=== PATIENT | female | born 1995 | race Caucasian/White ===

== ENCOUNTER 2017-04-23 23:46 | Emergency (ER) | payer OTHER ==
[~2017-04-23] VITALS: Ht 154.9 cm; Wt 74.8 kg
[~2017-04-23 23:46] MED LIST: ARIPIPRAZOLE5 MG PO; KEFLEX500 MG PO; VITAMIN D250000 UNIT PO
== END 2017-04-24 02:30 | disposition home or self-care (01) ==
LOC: ED 23:46
DX: R41.3 Other amnesia (principal); F17.200 Nicotine dependence, unspecified, uncomplicated; Z88.2 Allergy status to sulfonamides; Z91.013 Allergy to seafood
CPT/HCPCS: 36415; 80053; 80176; 81001; 84703; 85025; 99283; G0480

== ENCOUNTER 2018-01-23 20:54 | Emergency (ER) | payer OTHER ==
[~2018-01-23] VITALS: Ht 154.9 cm; Wt 82.5 kg
--- OUTSIDE RECORDS SUMMARY | ~2018-01-23 | XMS | Clinical Summary ---
Demographics + + + | Address | [address] | | | [place] [address] | + + + | Home Phone | | + + + | Preferred Language | Unknown | + + + | Marital Status | Unknown | + + + | Shinto Affiliation | Unknown | + + + | Race | Unknown | + + + | Ethnic Group | Unknown | + + + Author + + + | Author | [facility] | + + + | Organization | [facility] | + + + | Address | Unknown | + + + | Phone | Unavailable | + + + Support + + +---------+ + | Name | Relationship | Address | Phone | + + +---------+ + | Contact,No | ECON | Unknown | | + + +---------+ + Care Team Providers + +------+ + | Care Assistant Professor Of Music Name | Role | Phone | + +------+ + | Deric Begum | PP | | + +------+ + Allergies Not on File Current Medications Not on file Active Problems Not on file Encounters +--------+ + + + + | Date | Type | Specialty | Care Team | Description | +--------+ + + + + | 12/10/ | Documentati | | kT Swanson MD | | | 2018 | on Only | | | | +--------+ + + + + from Last 3 Months Social History + +-------+ +--------+------+ | Tobacco Use | Types | Packs/Day | Years | Date | | | | | Used | | + +-------+ +--------+------+ | Never Assessed | | | | | + +-------+ +--------+------+ + + + | Sex Assigned at | Date Recorded | | | | + + + | Not on file | | + + + Plan of Treatment + + + + + | Health Maintenance | Due Date | Last Done | Comments | + + + + + | Well Child Check | | | | | | 0 | | | + + + + + | Vaccine: HPV (1 of 3 | | | | | - Female 3-dose | 8 | | | | series) | | | | + + + + + | Vaccine: | | | | | Dtap/Tdap/Td (1 - | 6 | | | | Tdap) | | | | + + + + + | Cervical Cancer | | | | | Screening (Pap) | 8 | | | + + + + + | Vaccine: Influenza | | | | | (#1) | 8 | | | + + + + + Results Not on filefrom Last 3 Months Insurance + +--------+ +------+-------+ + | Payer | Benefi | Subscriber | Type | Phone | Address | | | t Plan | ID | | | | | | / | | | | | | | Group | | | | | + +--------+ +------+-------+ + | MEDICAID | [place] | [id number] | | | [address] | | | N | | | | [place] | | | [place] | | | | [phone] | | | BILL ADJUSTER | | | | | + +--------+ +------+-------+ + + +--------+ +--------+ + + | Guarantor Name | Accoun | Relation to | Date | Phone | Billing Address | | | t Type | Patient | of | | | | | | | | | | + +--------+ +--------+ + + | JOSEPH OLMSTEAD | Person | Self [birth year] Home: | [address] | | | al/Satish | | 1995 | [phone] | [place] | | | joe | | | [phone] | [phone] | + +--------+ +--------+ + +"
--- OUTSIDE RECORDS SUMMARY | ~2018-01-23 | XMS | Encounter Summary ---
Demographics + + + | Address | [address] | | | [place] [address] | + + + | Home Phone | | + + + | Preferred Language | Unknown | + + + | Marital Status | Unknown | + + + | Yazdanism Affiliation | Unknown | + + + | Race | Unknown | + + + | Ethnic Group | Unknown | + + + Author + + + | Author | [facility] | + + + | Organization | [facility] [employer] [facility] | + + + | Address | Unknown | + + + | Phone | Unavailable | + + + Support + + +---------+ + | Name | Relationship | Address | Phone | + + +---------+ + | Contact,No | ECON | Unknown | | + + +---------+ + Care Team Providers + +------+ + | Care Environmental Web Crawler Name | Role | Phone | + +------+ + | Deric Begum | PCP | | + +------+ + Encounter Details +--------+ + + + + | Date | Type | Department | Care Team | Description | +--------+ + + + + | 12/10/ | Documentati | [facility] | Tk Swanson MD [address] | | | 2018 | on Only | [facility] | [address] | | | | | [address] | [place] [address] | | | | | [place] | [phone] | | | | | [address] | | | | | | [phone] | | | +--------+ + + + + Social History + +-------+ +--------+------+ | Tobacco [...] on file | | + + + as of this encounter Plan of Treatment Not on fileas of this encounter Visit Diagnoses Not on filein this encounter"
--- OUTSIDE RECORDS SUMMARY | ~2018-01-23 | XMS | Clinical Summary ---
Demographics + + + | Address | [address] | | | [place] [address] | + + + | Home Phone | | + + + | Preferred Language | Unknown | + + + | Marital Status | Unknown | + + + | Yazidi Affiliation | Unknown | + + + | Race | Unknown | + + + | Ethnic Group | Unknown | + + + Author + + + | Author | [facility] | + + + | Organization | [facility] | + + + | Address | Unknown | + + + | Phone | Unavailable | + + + Support + + +---------+ + | Name | Relationship | Address | Phone | + + +---------+ + | Contact,No | ECON | Unknown | | + + +---------+ + Care Team Providers + +------+ + | Care Brick Loader Name | Role | Phone | + [...] +------+-------+ + | MEDICAID | [place] | [id number] | | | [address] | | | N | | | | [place] | | | [place] | | | | [phone] | | | [employer] ETL DEVELOPER | | | | | + +--------+ [...] | joe | | | [phone] | [phone] | + +--------+ +--------+ + +"
--- OUTSIDE RECORDS SUMMARY | ~2018-01-23 | XMS | Encounter Summary ---
Demographics + + + | Address | [address] | | | [place] [address] | + + + | Home Phone | | + + + | Preferred Language | Unknown | + + + | Marital Status | Unknown | + + + | Jehovah'S Witness Affiliation | Unknown | + + + | Race | Unknown | + + + | Ethnic Group | Unknown | + + + Author + + + | Author | [facility] | + + + | Organization | [facility] | + + + | Address | Unknown | + + + | Phone | Unavailable | + + + Support + + +---------+ + | Name | Relationship | Address | Phone | + + +---------+ + | Contact,No | ECON | Unknown | | + + +---------+ + Care Team Providers + +------+ + | Care Human Relations Professor Name | Role | Phone | + [...] | | | [address] | [place] [address] | | | | | [place] | [phone] | | | | | [address] | | | | | | [phone] | | | +--------+ + + + [...]
[2018-01-23] MEDS ORDERED: LAMOTRIGINE25 MG PO (21:17)
[2018-01-23] MEDS ORDERED: ACETAMINOPHEN-1 EAC1 PO (22:21)
[2018-01-23] MEDS ORDERED: DOXYCYCLINE HY100 MG PO (22:21)
== END 2018-01-23 22:32 | disposition home or self-care (01) ==
LOC: ED 20:54
DX: L05.91 Pilonidal cyst without abscess (principal); F41.9 Anxiety disorder, unspecified; F32.9 Major depressive disorder, single episode, unspecified; Z88.2 Allergy status to sulfonamides; Z91.013 Allergy to seafood; Z79.899 Other long term (current) drug therapy
CPT/HCPCS: 99282

== ENCOUNTER 2018-01-27 13:29 | Emergency (ER) | payer OTHER ==
[~2018-01-27] VITALS: Ht 154.9 cm; Wt 82.5 kg
--- OUTSIDE RECORDS SUMMARY | ~2018-01-27 | XMS | Clinical Summary ---
Demographics + + + | Address | [address] | | | [place] [address] | + + + | Home Phone | | + + + | Preferred Language | Unknown | + + + | Marital Status | Unknown | + + + | Cheondoism Affiliation | Unknown | + + + | Race | Unknown | + + + | Ethnic Group | Unknown | + + + Author + + + | Author | [facility] | + + + | Organization | [facility] | + + + | Address | Unknown | + + + | Phone | Unavailable | + + + Support + + +---------+ + | Name | Relationship | Address | Phone | + + +---------+ + | Contact,No | ECON | Unknown | | + + +---------+ + Care Team Providers + +------+ + | Care Theatre Director Name | Role | Phone | + +------+ + | Deric Begum | PP | | + +------+ + Allergies Not on File Current Medications Not on file Active Problems Not on file Encounters +--------+ + + + + | Date | Type | Specialty | Care Team | Description | +--------+ + + + + | 12/10/ | Documentati | | Tk Swanson MD | | | 2018 | [...] +------+-------+ + | MEDICAID | [place] | [id number] | | | [address] | | | N | | | | [place] | | | [place] | | | | [phone] | | | LINE ERECTOR | | | | | + +--------+ [...] | joe | | | [phone] | [phone] | + +--------+ +--------+ + +"
--- OUTSIDE RECORDS SUMMARY | ~2018-01-27 | XMS | Encounter Summary ---
Demographics + + + | Address | [address] | | | [place] [address] | + + + | Home Phone | | + + + | Preferred Language | Unknown | + + + | Marital Status | Unknown | + + + | Confucianist Affiliation | Unknown | + + + | Race | Unknown | + + + | Ethnic Group | Unknown | + + + Author + + + | Author | [facility] | + + + | Organization | [facility] [facility] | + + + | Address | Unknown | + + + | Phone | Unavailable | + + + Support + + +---------+ + | Name | Relationship | Address | Phone | + + +---------+ + | Contact,No | ECON | Unknown | | + + +---------+ + Care Team Providers + +------+ + | Care Cardiology Specialist Name | Role | Phone | + [...] | | | [address] | [place] [address] | | | | | [place] | [phone] | | | | | [address] | | | | | | [phone] | | | +--------+ + + + [...]
--- OUTSIDE RECORDS SUMMARY | ~2018-01-27 | XMS | Encounter Summary ---
Demographics + + + | Address | [address] | | | [place] [address] | + + + | Home Phone | | + + + | Preferred Language | Unknown | + + + | Marital Status | Unknown | + + + | Mandaen Affiliation | Unknown | + + + | Race | Unknown | + + + | Ethnic Group | Unknown | + + + Author + + + | Author | [facility] | + + + | Organization | [facility] | + + + | Address | Unknown | + + + | Phone | Unavailable | + + + Support + + +---------+ + | Name | Relationship | Address | Phone | + + +---------+ + | Contact,No | ECON | Unknown | | + + +---------+ + Care Team Providers + +------+ + | Care Ear Nose Throat Physician Name | Role | Phone | + [...] | | [address] | [place] [address] | | | | | [place] | [phone] | | | | | [address] | | | | | | [phone] | | | +--------+ + + + [...]
--- OUTSIDE RECORDS SUMMARY | ~2018-01-27 | XMS | Clinical Summary ---
Demographics + + + | Address | [address] | | | [place] [address] | + + + | Home Phone | | + + + | Preferred Language | Unknown | + + + | Marital Status | Unknown | + + + | Adventism Affiliation | Unknown | + + + | Race | Unknown | + + + | Ethnic Group | Unknown | + + + Author + + + | Author | [facility] | + + + | Organization | [facility] | + + + | Address | Unknown | + + + | Phone | Unavailable | + + + Support + + +---------+ + | Name | Relationship | Address | Phone | + + +---------+ + | Contact,No | ECON | Unknown | | + + +---------+ + Care Team Providers + +------+ + | Care Lunchroom Food Service Supervisor Name | Role | Phone | + [...] +------+-------+ + | MEDICAID | [place] | [id number] | | | [address] | | | N | | | | [place] | | | [place] | | | | [address] | | | HOUSE NURSE | | | | | + +--------+ [...] | jo[place] | | | [phone] | [phone] | + +--------+ +--------+ + +"
[~2018-01-27 13:29] MED LIST changes: +ACETAMINOPHEN-1 EAC1 PO; +DOXYCYCLINE HY100 MG PO; +LAMOTRIGINE25 MG PO
[2018-01-27] MEDS ORDERED: CLEOCIN HCL300 MG PO (14:24)
[2018-01-27] MEDS ORDERED: IBUPROFEN600 MG PO (14:24)
[2018-01-27] MEDS ORDERED: NORCO 10-325 T1 EACH PO (14:24)
== END 2018-01-27 14:49 | disposition home or self-care (01) ==
LOC: ED 13:29
PROC: 0H98XZZ Drainage of Buttock Skin, External Approach (ICD-10-PCS; principal; 2018-01-27)
DX: L05.01 Pilonidal cyst with abscess (principal); F32.9 Major depressive disorder, single episode, unspecified; F41.9 Anxiety disorder, unspecified; F60.3 Borderline personality disorder; Z88.2 Allergy status to sulfonamides; Z91.013 Allergy to seafood; Z79.899 Other long term (current) drug therapy
CPT/HCPCS: 10080; 99282

== ENCOUNTER 2019-07-01 17:51 | Emergency (ER) | payer OTHER ==
[~2019-07-01] VITALS: Ht 154.9 cm; Wt 67.6 kg
[~2019-07-01 17:51] MED LIST changes: +CLEOCIN HCL300 MG PO; +IBUPROFEN600 MG PO; +NORCO 10-325 T1 EACH PO
--- OUTSIDE RECORDS SUMMARY | 2019-07-01 17:54 | XMS ---
PreManage Notification: JOSEPH OLMSTEAD Security Marine Extension Agent Events No recent Security Events currently on file CRITERIA MET - PDMP CARE PROVIDERS PURNIMA SHEEHAN Physician Beef Cattle Specialist 01/28/2018-Current PHONE: [phone] Abbi has no Care Guidelines for this patient. EJez VISIT COUNT (12 MO.) 1 MORA Cosme TOTAL 1 NOTE: Visits indicate total known visits. ED/UCC VISIT TRACKING (12 MO.) 07/01/2019 17:51 MORA Tariq [place] TYPE: Emergency COMPLAINT: - FINGER LAC INPATIENT VISIT TRACKING (12 MO.) No inpatient visits to display in this time frame [email or web address]
[2019-07-01] MEDS ORDERED: PROZAC10 MG PO (18:06)
== END 2019-07-01 18:45 | disposition home or self-care (01) ==
LOC: ED 17:51
DX: S61.211A Laceration without foreign body of left index finger without damage to nail, initial encounter (principal); W26.8XXA Contact with other sharp object(s), not elsewhere classified, initial encounter; F31.9 Bipolar disorder, unspecified; F43.10 Post-traumatic stress disorder, unspecified; Z88.2 Allergy status to sulfonamides; Z91.013 Allergy to seafood; Z79.899 Other long term (current) drug therapy
CPT/HCPCS: 12001; 90471; 90715; 99282-25

== ENCOUNTER 2019-12-16 14:58 | Emergency (ER) | payer OTHER ==
[~2019-12-16] VITALS: Ht 154.9 cm; Wt 67.1 kg
[~2019-12-16 14:58] MED LIST changes: +PROZAC10 MG PO
--- OUTSIDE RECORDS SUMMARY | 2019-12-16 15:02 | XMS ---
PreManage Notification: JOSEPH OLMSTEAD Security Pump Mechanic Events No recent Security Events currently on file CRITERIA MET - PDMP CARE PROVIDERS PURNIMA SHEEHAN Physician Enterprise Systems Manager 01/28/2018-Current PHONE: [phone] WINIFRED DIOR Nurse Practitioner: Women's Health 07/03/2019-Current PHONE: [phone] Abbi has no Care Guidelines for this patient. Care History Medical/Surgical 07/03/2019 [facility] - Patient is currently established with [facility]. If patient is seen in the ED during business hours. Please contact CHWs at [facility]. Care Recommendation: If this patient has had 5 or more Emergency Department visits in the last 12 months.\T\nbsp; Patient will require education on the scope and purpose of the ED as an acute care provider not a Primary Care Provider and should not be utilized for chronic conditions.\T\nbsp; These are guidelines and the provider should exercise clinical judgment when providing care. E.D. VISIT COUNT (12 MO.) 2 MORA Cosme TOTAL 2 NOTE: Visits indicate total known visits. ED/UCC VISIT TRACKING (12 MO.) 12/16/2019 14:59 MORA Tariq [place] TYPE: Emergency COMPLAINT: - LT WRIST INJURY 07/01/2019 17:51 MORA Tariq [place] TYPE: Emergency COMPLAINT: - FINGER LAC DIAGNOSES: - Allergy to seafood - Laceration without foreign body of left index finger without - Allergy status to sulfonamides status - Contact with other sharp object(s), not elsewhere classified, - Bipolar disorder, unspecified - Post-traumatic stress disorder, unspecified - Laceration without foreign body of left index finger without - Other custodial (current) drug therapy INPATIENT VISIT TRACKING (12 MO.) No inpatient visits to display in this time frame [email or web address]
[2019-12-16] MEDS ORDERED: DEXTROAMP-AMPHE25 MG PO (15:07)
[2019-12-16] MEDS ORDERED: LITHIUM CARBON300 MG PO (15:08)
== END 2019-12-16 15:42 | disposition home or self-care (01) ==
LOC: ED 14:58
DX: S60.212A Contusion of left wrist, initial encounter (principal); F31.9 Bipolar disorder, unspecified; F43.10 Post-traumatic stress disorder, unspecified; F41.9 Anxiety disorder, unspecified; Z88.5 Allergy status to narcotic agent; Z88.2 Allergy status to sulfonamides; Z79.899 Other long term (current) drug therapy; W22.8XXA Striking against or struck by other objects, initial encounter
CPT/HCPCS: 73110; 99283-25

== ENCOUNTER 2020-12-16 18:25 | Emergency (ER) | payer OTHER ==
[~2020-12-16] VITALS: Ht 154.9 cm; Wt 65.9 kg
[~2020-12-16 18:25] MED LIST changes: +DEXTROAMP-AMPHE25 MG PO; +LITHIUM CARBON300 MG PO
--- OUTSIDE RECORDS SUMMARY | 2020-12-16 18:28 | XMS ---
PreManage Notification: JOSEPH OLMSTEAD Security Straightener Gun Parts Events No recent Security Events currently on file CRITERIA MET - PDMP CARE PROVIDERS PURNIMA SHEEHAN Physician Irradiated Fuel Handler 01/28/2018-Current PHONE: [phone] WINIFRED DIOR Nurse Practitioner: Women's Health 07/03/2019-Current PHONE: [phone] Abbi has no Care Guidelines for this patient. Care History Medical/Surgical 07/03/2019 [facility] - Patient is currently established with [facility]. If patient is seen in the ED during business hours. Please contact CHWs at [facility]. Care Recommendation: If this patient has had [...] providing care. E.D. VISIT COUNT (12 MO.) 1 MORA Cosme TOTAL 1 NOTE: Visits indicate total known visits. ED/UCC VISIT TRACKING (12 MO.) 12/16/2020 18:25 MORA Tariq [place] TYPE: Emergency COMPLAINT: - RT HAND INJURY INPATIENT VISIT TRACKING (12 MO.) No inpatient visits to display in this time frame [email or web address]
[2020-12-16] MEDS ORDERED: SIMPESSE 0.15-1 EACH PO (21:10)
[2020-12-16] MEDS ORDERED: BUSPIRONE HCL5 MG PO (21:10)
[2020-12-16] MEDS ORDERED: LEVOTHYROXINE50 MCG PO (21:10)
== END 2020-12-16 22:15 | disposition home or self-care (01) ==
LOC: ED 18:25
DX: S60.221A Contusion of right hand, initial encounter (principal); W23.1XXA Caught, crushed, jammed, or pinched between stationary objects, initial encounter; F43.10 Post-traumatic stress disorder, unspecified; Z88.5 Allergy status to narcotic agent; Z88.2 Allergy status to sulfonamides; Z79.899 Other long term (current) drug therapy
CPT/HCPCS: 73130; 99283-25; A9270

== ENCOUNTER 2022-02-05 19:47 | Emergency (ER) | payer OTHER ==
[~2022-02-05] VITALS: Ht 154.9 cm; Wt 76.0 kg
[~2022-02-05 19:47] MED LIST changes: +BUSPIRONE HCL5 MG PO; +LEVOTHYROXINE50 MCG PO; +SIMPESSE 0.15-1 EACH PO
--- OUTSIDE RECORDS SUMMARY | 2022-02-05 19:50 | XMS ---
PreManage Notification: JOSEPH OLMSTEAD Security Training Generalist Events No recent Security Events currently on file CRITERIA MET - CATHYP CARE PROVIDERS HARRIETT BARNES Physician Plastering Supervisor 12/17/2020-Current PHONE: Unknown PURNIMA SHEEHAN Physician Plastering Supervisor 01/28/2018-Current PHONE: [phone] Abbi has no Care Guidelines for this patient. Maite VISIT COUNT (12 MO.) 2 MORA Cosme TOTAL 2 NOTE: Visits indicate total known visits. ED/UCC VISIT TRACKING (12 MO.) 02/05/2022 19:47 MORA Tariq OR TYPE: Emergency COMPLAINT: - ARM LACERATION 10/27/2021 15:57 MORA Tariq [place] TYPE: Emergency COMPLAINT: - VAGINAL BLEEDING/ 7 WEEKS PREG DIAGNOSES: - Other nursing home (current) drug therapy - Allergy status to narcotic agent - Threatened - Less than 8 weeks gestation of - Allergy status to sulfonamides - Hemorrhage in early , unspecified INPATIENT VISIT TRACKING (12 MO.) No inpatient visits to display in this time frame [email or web address]
== END 2022-02-05 23:42 | disposition home or self-care (01) ==
LOC: ED 19:47
DX: S51.811A Laceration without foreign body of right forearm, initial encounter (principal); Z23 Encounter for immunization; Z88.6 Allergy status to analgesic agent; Z88.2 Allergy status to sulfonamides; W26.9XXA Contact with unspecified sharp object(s), initial encounter
CPT/HCPCS: 90471; 90715; 99282-25

== ENCOUNTER 2022-06-05 07:58 | Inpatient (IN) | payer OTHER ==
[~2022-06-05] VITALS: Ht 154.9 cm; Wt 82.6 kg
--- NOTE | 2022-06-05 12:45 | PR ---
[facility] [address] [place], [place] [address] Signed Progress Notes IP Datetime Report Generated by CPN: 06/05/2022 12:45 PROGRESS NOTES: [id number] Impression: Reassuring Heart Rate Procedures: Artificial ROM VITAL SIGNS: [id number] Vital Signs: Reviewed VS Notable Details: persistently elevated, non-severe EXAM: [id number] Dilatation: 4.0 Effacement: 80 Station: -3 Contractions: acontractile MEMBRANES: [id number] Membranes Status: Ruptured Comments: AROM performed yielding moderate amount of bloody fluid. Pt reports history significant for "bleeding a lot for anything" including requiring suture closure of skin after Nexplanon removal. Plan: low-dose pitocin in 1-2h if no contractions. Epidural ok upon pt request. Anticipate TXA at time of delivery. FETUS A: [id number] FHR Baseline: 135 Variability: Moderate 6-25bpm Accelerations: 15X15 Decelerations: None FHR Category: Category I Presentation: Vertex Comments on Fetus A: no evidence of acidemia FETUS B: [id number] Signing Physician: Kervin Zheng DO Copies: ~ *Electronically Signed* 06/05/22 1245 KERVIN ZHENG DO PATIENT NAME: JOSEPH OLMSTEAD PROGRESS NOTE DATE OF : [birth year] PHYSICIAN: KERVIN ZHENG #: [id number] REPORT IS CONFIDENTIAL AND NOT TO BE RELEASED WITHOUT AUTHORIZATION
--- NOTE | 2022-06-05 18:22 | PR ---
[facility] [address] [facility] [place], [place] [address] Signed Progress Notes IP Datetime Report Generated by N: 06/05/2022 18:21 PROGRESS NOTES: [id number] Impression: Normal Progression of Labor; Reassuring Heart Rate Procedures: Sterile Vag Exam Plan: Continue Present Management (Annotations: Data stored by [facility] on behalf of user) VITAL SIGNS: [id number] Vital Signs: Reviewed VS Notable Details: persistently elevated, non-severe EXAM: [id number] Dilatation: 7.0 Effacement: 95 Station: -2 Contractions: acontractile MEMBRANES: [id number] Membranes Status: Ruptured Comments: Progressing well, category 1 tracing. Continue repositioning with peanut ball. FETUS A: [id number] FHR Baseline: 135 Variability: Moderate 6-25bpm Accelerations: 15X15 Decelerations: None FHR Category: Category I Presentation: Vertex Comments on Fetus A: no evidence of acidemia FETUS B: [id number] Signing Physician: Kervin Zheng DO Copies: ~ *Electronically Signed* 06/05/22 182 KERVIN ZHENG DO PATIENT NAME: JOSEPH OLMSTEAD PROGRESS NOTE DATE OF : [birth year] PHYSICIAN: KERVIN ZHENG DO RPT #: [id number] REPORT IS CONFIDENTIAL AND NOT TO BE RELEASED WITHOUT AUTHORIZATION
--- NOTE | 2022-06-07 12:46 | PR ---
[facility] [address] [place], [place] [address] Signed PP Progress Notes Datetime Report Generated by FAISAL: 06/07/2022 12:46 SUBJECTIVE: [id number] Nausea/Vomiting: Denies Flatus: Yes Vital Signs: [id number] Vital Signs: Reviewed Notable Details: BPs 130s-140s/70s-90s EXAM: Ongoing Cardiovascular: Normal Respiratory: Normal Abdomen/Uterus: Normal Lochia: Normal Extremities: Normal Incision: Normal Progress: Normal Exam Comments: NAD RRR, no pallor No dyspnea/ retractions Abd SNTND, FFBU Ext: trace edema BLLE, neg Tom's BL IMPRESSION/PLAN/PROCEDURES: [id number] Impression: Normal Progression; Induced Hypertension Plan: Discharge Progress Notes: Pt is a 26 yo [id number] s/p -MIOL for gHTN, BP stable, non-severe: follow-up as outpatient 06/10 for BP check. PreE precautions reviewed -hgb 8.1 from 10.1, asymptomatic: start oral iron BID Undecided re: contraception well since last night when baby began to latch well Anticipate DC to home today Signing Physician: Kervin Zheng DO *Electronically Signed* 06/07/22 1246 KERVIN ZHENG DO PATIENT NAME: JOSEPH OLMSTEAD PROGRESS NOTE DATE OF : [birth year] PHYSICIAN: KERVIN ZHENG DO RPT #: [id number] REPORT IS CONFIDENTIAL AND NOT TO BE RELEASED WITHOUT AUTHORIZATION
== END 2022-06-07 14:47 | disposition home or self-care (01) | DRG 806 ==
LOC: FBCO 07:58 → FBC 10:00
PROVIDERS: ADMIT Obstetrics & Gynecology; ATTEND Obstetrics & Gynecology
PROC: 10E0XZZ Delivery of Products of Conception, External Approach (ICD-10-PCS; principal; 2022-06-05)
PROC: 0KQM0ZZ Repair Perineum Muscle, Open Approach (ICD-10-PCS; 2022-06-05)
PROC: 10907ZC Drainage of Amniotic Fluid, Therapeutic from Products of Conception, Via Natural or Artificial Opening (ICD-10-PCS; 2022-06-05)
PROC: 00HU33Z Insertion of Infusion Device into Spinal Canal, Percutaneous Approach (ICD-10-PCS; 2022-06-05)
PROC: 3E0R3BZ Introduction of Anesthetic Agent into Spinal Canal, Percutaneous Approach (ICD-10-PCS; 2022-06-05)
DX: O13.4 Gestational [pregnancy-induced] hypertension without significant proteinuria, complicating childbirth (principal); D62 Acute posthemorrhagic anemia; Z37.0 Single live birth; O99.02 Anemia complicating childbirth; O99.324 Drug use complicating childbirth; F12.90 Cannabis use, unspecified, uncomplicated; Z20.822 Contact with and (suspected) exposure to COVID-19; Z67.10 Type A blood, Rh positive; O70.1 Second degree perineal laceration during delivery; Z3A.38 38 weeks gestation of pregnancy; Z87.891 Personal history of nicotine dependence
CPT/HCPCS: 36415; 59025; 80053; 82565; 82570; 83615; 84156; 84550; 85027; 86850; 86900; 86901; 87502; A9270; C9803; J2590; J7121; U0003

== ENCOUNTER 2024-02-22 05:44 | Day surgery (SDC) | payer OTHER ==
[2024-02-14 11:20] VITALS: BP 124/80
[~2024-02-22] VITALS: Ht 152.4 cm; Wt 64.1 kg
[~2024-02-22 05:44] MED LIST changes: +LACTATED RINGER'S 1,000 ML IV SCH
[2024-02-22 05:58] VITALS: BP 128/83
[2024-02-22] MEDS ORDERED: SUCCINYLCHOLINE IN 0.9% NACL 200 MG/10 ML SYRINGE ONE (06:28)
[2024-02-22] MEDS ORDERED: ondansetron HCL 4 MG/2 ML VIAL ONE (06:28)
[2024-02-22] MEDS ORDERED: SUGAMMADEX SODIUM 200 MG/2 ML ML ONE (06:28)
[2024-02-22] MEDS ORDERED: DEXAMETHASONE SOD PHOS 4 MG/ML VIAL ONE (06:28)
[2024-02-22] MEDS ORDERED: fentaNYL citrate 100 MCG/2 ML VIAL ONE (06:28)
[2024-02-22] MEDS ORDERED: KETOROLAC TROMETHAMINE 30 MG/ML VIAL ONE (06:28)
[2024-02-22] MEDS ORDERED: propofoL 200 MG/20 ML VIAL ONE (06:28)
[2024-02-22] MEDS ORDERED: METOCLOPRAMIDE HCL 10 MG/2 ML SDV ONE (06:28)
[2024-02-22] MEDS ORDERED: LACTATED RINGER'S 1,000 ML IV ONE ×2 (06:28→08:33)
[2024-02-22] MEDS ORDERED: FAMOTIDINE 20 MG/ 2 ML VIAL ONE (06:28)
[2024-02-22] MEDS ORDERED: ROCURONIUM BROMIDE 50 MG/5 ML SYR ONE (06:28)
[2024-02-22] MEDS ORDERED: LIDOCAINE HCL 4% 5 ML AMP ONE (06:29)
[2024-02-22] MEDS ORDERED: MIDAZOLAM HCL 2 MG/2 ML VIAL ONE (06:29)
[2024-02-22] MEDS ORDERED: dexmedeTOMIDine HCl 200 MCG/2 ML VIAL ONE (06:38)
[2024-02-22] MEDS ORDERED: IBLOOD GLUCOSE TEST STRIP 1 EA TEST VI PRN ×2 (07:00→08:00)
[2024-02-22] MEDS ORDERED: LIDOCAINE HCL 1% 5 ML SDV INJ ONE (07:00)
[2024-02-22] MEDS ORDERED: CEFAZOLIN SODIUM 2 GM/20 ML SYR IV SCH (07:00)
[2024-02-22] MEDS ORDERED: KETAMINE in NS 50 MG/5 ML SYR ONE (07:35)
--- NOTE | 2024-02-22 07:50 | NUR ---
PT GONE FOR PROCEDURE. PROVIDED PRAYER.
[2024-02-22] MEDS ORDERED: SEVOFLURANE 250 ML BTL ONE (07:52)
[2024-02-22] MEDS ORDERED: PROCHLORPERAZINE EDISYLATE 10 MG/2 ML VIAL IV PRN ×2 (08:00→09:00)
[2024-02-22] MEDS ORDERED: droPERidol 5 MG/2 ML VIAL IV PRN (08:00)
[2024-02-22] MEDS ORDERED: ondansetron HCL 4 MG/2 ML VIAL IV PRN ×2 (08:00→09:00)
[2024-02-22] MEDS ORDERED: NALOXONE HCL 0.4 MG SYR IV PRN ×2 (08:00→09:00)
[2024-02-22] MEDS ORDERED: fentaNYL citrate 50 MCG/ML SDV IV PRN (08:00)
[2024-02-22] MEDS ORDERED: MEPERIDINE HCL 25 MG/1 ML VIAL IV PRN (08:00)
[2024-02-22] MEDS ORDERED: METOCLOPRAMIDE HCL 10 MG/2 ML SDV IV PRN (08:00)
[2024-02-22] MEDS ORDERED: FLUORESCEIN SODIUM 500 MG/5 ML ML ONE (08:03)
[2024-02-22] MEDS ORDERED: SIMETHICONE 125 MG TABLET CHEWABLE PO PRN (09:00)
[2024-02-22] MEDS ORDERED: OXYCODONE/APAP 5/325 TAB PO PRN (09:00)
[2024-02-22] MEDS ORDERED: SIMETHICONE 125 MG TABLET CHEWABLE PO SCH (09:00)
[2024-02-22] MEDS ORDERED: FAMOTIDINE 20 MG/ 2 ML VIAL IV PRN (09:00)
[2024-02-22] MEDS ORDERED: MORPHINE SULFATE 10 MG/ML VIAL IV PRN (09:00)
[2024-02-22] MEDS ORDERED: MAGNESIUM HYDROXIDE/AL HYDROX 30 ML CUP PO PRN (09:00)
--- NOTE | 2024-02-22 09:34 | NUR ---
[facility]IV[facility] NON RESPONSIVE TO NOXIOUS STIMULI WITH OPA IN PLACE. CHIN LIFT HELD BY RN. 0905 REPOSITIONED HEAD TO L SIDE TO KEEP AIRWAY OPEN WITH OPA IN PLACE. 0910 DR AT BEDSIDE PREPPING L UPPER ARM WITH STERILE TECHNIQUE. NEXPLANON REMOVED BY DR. JEREZ STRIPS X 2 AND COBAN OVERSITE. PT CONTINUES TO BE NON RESPONSIVE TO NOXIOUS STIMULI. 09 NO CHANGE IN PT STATUS.
[2024-02-22 10:08] VITALS: BP 114/69
--- NOTE | 2024-02-22 10:16 | NUR ---
1006-PT BACK TO ROOM FROM PACU ON RA. RECEIVED REPORT FROM SHENA FLANNERY. PT IS AWAKE. RATES PAIN 3/10, DENIES NAUSEA. PROVIDED PT WITH WATER AND JELLO. NO OTHER NEEDS AT THIS TIME. CALL LIGHT WITHIN REACH.
[2024-02-22 11:14] VITALS: BP 123/75
[2024-02-22] MEDS ORDERED: KETOROLAC TROMETHAMINE 15 MG/ML VIAL IV ONE (11:30)
[2024-02-22] MEDS ORDERED: ACETAMINOPHEN 1,000 MG/100 ML VIAL IV ONE (11:30)
[2024-02-22] MEDS ORDERED: KETOROLAC TROMETHAMINE 15 MG/ML VIAL ONE (11:38)
[2024-02-22] MEDS ORDERED: ACETAMINOPHEN 1,000 MG/100 ML VIAL ONE (11:38)
[2024-02-22 12:05] VITALS: BP 117/73
--- NOTE | 2024-02-22 12:14 | NUR ---
LE 1102-PT IN RESTROOM. VOIDS 20ML OF YELLOW URINE. LE 1105-PT AMBULATES BACK TO ROOM AND LAYING IN BED. WARM BLANKET PROVIDED. LE 1116-PT RATES PAIN 5/10, DENIES NAUSEA. RESP EVEN AND UNLABORED. PT REQUESTS SOMETHING OTHER THAN NARCTICS FOR PAIN CONTROL IF POSSIBLE. CALL LIGHT WITHIN REACH LE 1118-VO FOR IV TYLENOL AND 15MG OF TORADOL PER SAMARA WHEELER. ORDERS SENT TO PHARM. LE 1120-CALLED PHARMACY TO VERIFY ORDERS. LE 1138-PAIN MEDS GIVEN PER EMAR. REFILLED PT'S WATER. NO OTHER NEEDS AT THIS TIME. CALL LIGHT WITHIN REACH
--- NOTE | 2024-02-22 12:18 | NUR ---
1210-PT LAYING IN BED. RESP EVEN AND UNLABORED. RATES PAIN 5/10. DENIES NAUSEA. NO OTHER NEEDS AT THIS TIME. CALL LIGHT WITHIN REACH.
--- NOTE | 2024-02-22 12:38 | NUR ---
PT RATES PAIN 3-4/10 AND THIS IS TOLERABLE FOR HER. NO OTHER NEEDS AT THIS TIME. CALL LIGHT WITHIN REACH.
--- NOTE | 2024-02-22 12:45 | NUR ---
1245-PT AMBULATES TO RESTROOM. GAIT STEADY AND TOLERATED WELL.
--- NOTE | 2024-02-22 12:49 | NUR ---
1248-PT VOIDS 400ML OF YELLOW URINE. PT IS READY TO GO HOME. PT WILL GET DRESSED.
--- NOTE | 2024-02-22 13:20 | NUR ---
CAROL 1258-WENT OVER DISCHARGE INSTRUCTIONS WITH PT. ALL QUESTIONS ANSWERED. PT AMBULATES TO WHEELCHAIR AND RIDE PROVIDED TO FRONT OF HOSPITAL WHERE BROTHER WAS WAITING WITH THE CAR.
--- NOTE | 2024-02-28 17:18 | PATH ---
[facility] [address] [place], [place] [address] Signed SPECIMEN(S): A UTERUS, CERVIX, BILATERAL TUBES SPECIMEN SOURCE: A. UTERUS, CERVIX, BILATERAL TUBES CLINICAL HISTORY: AUB, dysmenorrhea, PCOS FINAL PATHOLOGIC DIAGNOSIS: Uterus, cervix and bilateral tubes: - Proliferative endometrium, negative for hyperplasia or atypia. - Benign endo and ectocervix. - Benign bilateral fimbriated oviducts. JVR:ifrah MICROSCOPIC EXAMINATION: Histologic sections of all submitted blocks are examined by light microscopy. These findings, together with the gross examination, support the pathologic diagnosis. GROSS DESCRIPTION: The specimen, labeled and designated "Shanon Rao, uterus, cervix, bilateral fallopian tubes," is received in formalin and consists of uterus with attached cervix detached bilateral fallopian tubes. The uterus and cervix weighs 86 g measuring 8.4 x 5.5 x 4.0 cm. The uterine serosa is pink-neville smooth. The cervix measures 3.3 x 3.0 cm, the ectocervix pink-neville smooth with an area of erosion near the external os measuring 1.4 x 1.0 cm, and the external os is slit like and patent measuring 1.2 cm in greatest dimension. The specimen is opened to reveal triangular-shaped endometrium measuring 3.5 x 2.5 cm in pink-neville smooth ranging in thickness from 0.1 to 0.2 cm. The myometrial thickness is 1.8 cm and is sectioned to reveal white trabeculated cut surfaces. The first detached fallopian tube measures 5.9 cm in length by 0.4 cm in greatest diameter with attached fimbriated end and a single peritubular cyst measuring 0.2 cm in greatest dimension. The second detached fallopian tube measures 4.7 cm in length by 0.6 cm in greatest diameter with attached fimbriated end. Hoop Riveting Machine Operator Helper sections are submitted. Cassette Summary: (A1) sales representative malt liquors sections of cervix PATIENT NAME: JOSEPH RAO PATHOLOGY DATE OF : [birth year] REPORT #: [id number] PHYSICIAN: [facility] PCP: VALERIA ORELLANA MD REPORT IS CONFIDENTIAL AND NOT TO BE RELEASED WITHOUT AUTHORIZATION [facility] [address] [place], [place] [address] Signed (A2) represent sections of endometrium-myometrium (A3) represent sections of first described fallopian tube (A4) represent section the second prescription fallopian tube JM (under the direct supervision of a pathologist) The Gross Description was prepared using a voice recognition system. The report was reviewed for accuracy; however, sound-alike word errors, addition and/or deletions may occur. If there is any question about this report, please contact Client Services. PERFORMING LABORATORY: Technical component was performed by [facility], [address] [place] [address] (CLIA# [id number]). Professional interpretation was performed by [facility] - [facility], [address] [place] [address], [place] [address] (CLIA#: [id number]). Diagnostician: Rubin Carty MD Pathologist Electronically Signed 02/28/2024 Copies: ~ PATIENT NAME: JOSEPH RAO PATHOLOGY DATE OF : [birth year] REPORT #: [id number] PHYSICIAN: [facility] PATHOLOG[facility] PCP: VALERIA ORELLANA MD REPORT IS CONFIDENTIAL AND NOT TO BE RELEASED WITHOUT AUTHORIZATION
== END 2024-02-22 12:58 | disposition home or self-care (01) ==
LOC: OPS 05:44 → DS 05:44 → OPS 07:30 → DS 07:30 → OPS 12:58
PROVIDERS: ATTEND Obstetrics & Gynecology
PROC: 0UT74ZZ Resection of Bilateral Fallopian Tubes, Percutaneous Endoscopic Approach (ICD-10-PCS; 2024-02-22)
PROC: 0U514ZZ Destruction of Left Ovary, Percutaneous Endoscopic Approach (ICD-10-PCS; 2024-02-22)
PROC: 0JPV0HZ Removal of Contraceptive Device from Upper Extremity Subcutaneous Tissue and Fascia, Open Approach (ICD-10-PCS; 2024-02-22)
PROC: 0UT94ZZ Resection of Uterus, Percutaneous Endoscopic Approach (ICD-10-PCS; principal; 2024-02-22 07:30)
DX: N80.102 Endometriosis of left ovary, unspecified depth (principal); E28.2 Polycystic ovarian syndrome; F31.9 Bipolar disorder, unspecified; F43.10 Post-traumatic stress disorder, unspecified; Z87.891 Personal history of nicotine dependence; Z88.5 Allergy status to narcotic agent; Z88.2 Allergy status to sulfonamides; Z79.890 Hormone replacement therapy; Z79.899 Other long term (current) drug therapy
CPT/HCPCS: 00840; 88307; J0131; J0330; J0690; J1100; J1885; J2250; J2405; J2704; J2765; J3010; J3490; J7121

== ENCOUNTER 2024-12-11 16:14 | Emergency (ER) | payer OTHER ==
[~2024-12-11] VITALS: Ht 152.4 cm; Wt 76.0 kg
[~2024-12-11 16:14] MED LIST changes: -LACTATED RINGER'S 1,000 ML IV SCH
[2024-12-11 16:45] LABS: BLOOD/HGB, URINE SMALL (Negative); KETONE, URINE NEGATIVE (Negative); LEUK ESTERASE, URINE TRACE (negative); NITRITE, URINE NEGATIVE (negative)
[2024-12-11 16:52] LABS: BACTERIA, URINE RARE /hpf (negative); CASTS, URINE NONE SEEN \\lpf; CRYSTALS, URINE NONE SEEN (0-1+); EPITHELIAL CELLS, URINE SQUAMOUS 4+ /lpf (0-1+)
[2024-12-11 16:53] LABS: REFLEX CULTURE, URINE No (No)
[2024-12-11 17:04] LABS: BASOPHILS 0.4 % (0.1-1.2); EOSINOPHILS 0.8 % (0.7-5.8); LYMPHOCYTES 30.8 % (19.3-51.7); MCH 31.5 PG (25.6-32.2); MCHC 34.2 g/dL (32.2-35.5); MCV 92.1 fL (79.4-94.8); MONOCYTES 7.1 % (4.7-12.5); NEUTROPHILS 60.8 % (34.0-71.1); RBC 4.41 M/uL (3.93-5.22)
[2024-12-11 17:24] LABS: ALT (SGPT) 21.0 U/L (14-59); AST (SGOT) 10.0 U/L (15-37); GLOMERULAR FILTRATION RATE,EST 117.0 mL/min (>60); PROTEIN, TOTAL 6.9 g/dL (6.4-8.2); UREA NITROGEN 14.0 mg/dL (7-18)
[2024-12-11] MEDS ORDERED: CEPHALEXIN500 M1 PO (19:06)
[2024-12-11 19:24] VITALS: BP 139/85
[2024-12-11 20:46] LABS: N. GONORRRHOEAE BY PCR NOT DETECTED (NOT DETECT)
== END 2024-12-11 19:25 | disposition home or self-care (01) ==
LOC: ED 16:14
PROVIDERS: Emergency Medicine
DX: N39.0 Urinary tract infection, site not specified (principal); Z87.891 Personal history of nicotine dependence; Z88.2 Allergy status to sulfonamides; Z79.890 Hormone replacement therapy; Z79.899 Other long term (current) drug therapy
CPT/HCPCS: 36415; 74177; 80053; 81001; 84703; 85025; 87088; 87491; 99284-25; J0696; Q9967